=== PATIENT | male | born 2000 | race Caucasian/White ===

== ENCOUNTER 2021-09-11 08:04 | Outpatient (CLI) | payer OTHER ==
--- NOTE | 2021-09-11 09:55 | MRI Report ---
PROCEDURE: Knee LT W/O INDICATIONS: KNEE PAIN TECHNIQUE: Noncontrast sagittal PD fast spin echo and T2 fast spin echo with fat saturation, sagittal 3-D gradie nt sequence with fat saturation; coronal T1 spin echo and PD fast spin echo with fat saturation, and axial PD fast spin echo with fat saturation through the knee. COMPARISON: None. FINDINGS: Image quality: Excellent. Menisci: There is oblique linear high T2 signal intensity traversing the middle and peripheral thirds of the posterior horn medial meniscus, demonstrating inferior articular surface extension. Lateral m eniscus is intact. Cruciate ligaments: The anterior and posterior cruciate ligaments appear intact. Posterior cruciate ligament is intact. There is full-thickness tearing of the anterior cruciate ligament. Medial structures: The medial collateral ligament appears intact. The posterior oblique ligament, s emimembranosus tendon insertions, and oblique popliteal ligament, and meniscocapsular junction appear intact. Visualized portions of the pes anserinus tendons appear normal. No abnormal bursal fluid. Lateral structures: The lateral collateral ligament, long and short heads of the biceps femoris tend on appear intact. The popliteus tendon appears normal; the popliteofibular ligament appears intact. The posterosuperior and anteroinferior popliteomeniscal fascicles appear intact. The arcuate and fa bellofibular ligaments appear intact, around the lateral inferior geniculate artery. Iliotibial band appears normal. Anterior structures: The quadriceps and patellar tendons appear intact. Patellar alignment is franklin l. No femoral trochlear dysplasia or ventral trochlear prominence. No edema in the infrapatellar fa t pad. Bones and cartilage: No displaced fracture. There is mild ill-defined T2 signal elevation within the anterior weightbearing aspect of the lateral femoral condyle consistent with contusion. Mild articul ar cartilage loss diffusely overlies the weightbearing aspects of the medial femoral condyle and medi al tibial plateau. Joint space: There is a small knee joint effusion. No Crouch's cyst. Normal appearing synovial plica e are incidentally noted. IMPRESSION: 1. Anterior cruciate ligament tear. 2. Medial meniscal tear. 3. Small knee joint effusion. 4. Contusion within the lateral femoral condyle. Reviewed by: Shahzad Medellin MD on 09/11/2021 9:54 AM PDT Approved by: Shahzad Medellin MD on 09/11/2021 9:54 AM PDT Station ID: [id number]
== END 2021-09-11 08:05 | disposition home or self-care (01) ==
LOC: DI 08:04
DX: S83.512A Sprain of anterior cruciate ligament of left knee, initial encounter (principal); S83.242A Other tear of medial meniscus, current injury, left knee, initial encounter; M25.462 Effusion, left knee; S70.12XA Contusion of left thigh, initial encounter

== ENCOUNTER 2023-02-20 07:36 | Outpatient (CLI) | payer OTHER ==
--- NOTE | 2023-02-22 12:17 | MRI Report ---
PROCEDURE: KNEE WO - LT INDICATIONS: PAIN IN LEFT KNEE TECHNIQUE: Noncontrast sagittal PD fast spin echo and T2 fast spin echo with fat saturation, sagittal 3-D spoile d GE with fat saturation; coronal T1 spin echo and PD fast spin echo with fat saturation, and axial P D fast spin echo with fat saturation through the knee. COMPARISON: Left knee MRI 09/11/2021 FINDINGS: Image quality: Excellent. Anterior cruciate ligament: Postsurgical changes are seen from prior anterior cruciate ligament fausto nstruction. The femoral tunnel is located at the 2 o'clock position in the intercondylar notch with t he orifice approximately 8 mm from the intersection of the posterior femoral cortex with Blumensaat's line. The tibial tunnel is located in the anterior to middle thirds of the central tibial plateau. T he anterior cruciate ligament graft is completely torn proximally. There is no significant arthrofibr osis. Posterior cruciate ligament: Intact. Medial collateral ligament: Thickening the proximal medial collateral ligament without surrounding e rufina is most likely secondary to a remote prior low-grade sprain. Lateral collateral ligament: Intact. Medial meniscus: Intermediate signal intensity within the posterior horn of the medial meniscus is l ess specific in the postsurgical setting and may represent fibrovascular granulation tissue versus re sidual or recurrent horizontal oblique tearing. Lateral meniscus: Intact. Medial and lateral tendons: The semimembranosus tendon insertions appear intact. Visualized portion s of the pes anserinus tendons appear normal. The popliteus tendon appears intact. Iliotibial band appears normal. Anterior structures: Postsurgical changes from prior patellar tendon harvest. The distal quadriceps tendon is intact. No patellar subluxation. No femoral trochlear dysplasia or ventral trochlear promi nence. No edema in the infrapatellar fat pad. Bones: No acute trabecular bone injury or fracture. Mild anterior translation of the tibial plateau relative to the distal femur. Medial femorotibial cartilage: No focal cartilage defect. Lateral femorotibial cartilage: Mild partial thickness cartilage irregularity at the anterior weight bearing portion of the lateral femoral condyle. Patellofemoral cartilage: No focal cartilage defect. Soft tissues: There is a small joint effusion. There is a trace medial popliteal cyst. The musculat ure surrounding the knee is normal in bulk. IMPRESSION: 1.Postsurgical changes from anterior cruciate ligament reconstruction with tunnel positioning as desc ribed in the body of the report. There is recurrent full-thickness tearing of the proximal anterior c ruciate ligament graft. 2.Remote prior low-grade sprain of the proximal medial collateral ligament. 3.Intrasubstance signal at the posterior horn of the medial meniscus is less specific in the postsurg ical setting and may represent fibrovascular granulation tissue versus residual or recurrent meniscal tearing. 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 5.Small joint effusion. Reviewed by: Sonido Mullins MD on 02/22/2023 12:16 PM PDT Approved by: Sonido Mullins MD on 02/22/2023 12:16 PM PDT Station ID: [id number]
== END 2023-02-20 07:37 | disposition home or self-care (01) ==
LOC: DI 07:36
PROVIDERS: ATTEND Internal Medicine
DX: S83.412A Sprain of medial collateral ligament of left knee, initial encounter (principal); M94.262 Chondromalacia, left knee; M25.462 Effusion, left knee